=== PATIENT | male | born 1975 | race Two or more races ===

== ENCOUNTER 2024-11-24 09:51 | Inpatient (IN) | payer MEDICAID, SELFPAY ==
[2024-11-24] VITALS (12 sets, daily range): BP systolic 149–169; BP diastolic 100–116; PULSE 63–120; RESP 12–99; TEMP 36.4–37.2; O2SAT 91–99; BMI 28.1; BMI 28.8
--- NOTE | 2024-11-24 10:08 | EKG_ITS ---
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
--- NOTE | 2024-11-24 10:23 | XR_ITS ---
Examination: AP chest single view Technique one AP portable upright chest single view Date and time: November 24, 2024, 10:38 AM INDICATIONS: Acute chest pain today. FINDINGS: Atelectasis versus early pneumonia at the lung bases Normal heart size Moderate osteopenia IMPRESSION: Atelectasis versus early pneumonia at the lung bases, clinical correlation advised
--- NOTE | 2024-11-24 10:25 | PD.EDCHEST ---
ED Chest Pain RME/HPI General Chief Complaint: Chest Pain Stated Complaint: CHEST PAIN Time Seen by Provider: 11/24/24 10:22 Arrival date/time: 11/24/24 09:51 Limitations: no limitations RME / HPI RME / HPI narrative: 49 year old male with history of heart problems , hypertension, GERD presents to the ED BIBA for evaluation of substernal chest pain beginning last night and worsening this morning while in court. Described as tightness in sensation with radiation to epigastric region and mid upper back. Accompanied by sweating and nausea. Reports he had experienced similar chest pain 2 years ago and during that time diagnosed with pancreatitis. Denies drinking alcohol or drug use. No known modifying factors. Per medics reports, patient was given 0.4mg SL Nitro, 1 Nitro paste on left chest, and 162mg ASA. Related Data Allergies Allergy/AdvReac Type Severity Reaction Status Date / Time Penicillins Allergy Severe Vomiting Verified 11/24/24 10:22 NKA* Allergy Uncoded 11/26/11 07:59 Review of Systems Review of Systems Systems Reviewed: All systems reviewed, normal except as documented Past Medical History Past Medical History CARDIAC: Positive Cardiac Disorders, Hypercholesterolemia, Congestive Heart Failure and Hypertension RESPIRATORY: Negative Chronic Obstructive Pulmonary Disease (COPD) or Asthma GENITOURINARY: Positive Chronic Kidney Disease; Negative Renal Disease ENDOCRINE: Negative Diabetes Mellitus Type 1 or Diabetes Mellitus Type 2 HEMATOLOGIC: Negative Sickle Cell Disease Family History FAMILY HISTORY: Negative Family Cancer Social History SMOKING STATUS: Never smoker ED Exam General Limitations: Present no limitations General appearance: Present alert and other (appears to be in pain, clammy) Head Head exam: Present atraumatic and normocephalic Eye Eye exam: Present normal appearance, PERRL and EOMI ENT ENT exam: Present normal exam, normal oropharynx and mucous membranes moist Neck Neck exam: Present normal inspection, full ROM and trachea midline Chest Chest inspection: Present normal inspection and symmetric chest wall rise Respiratory Respiratory exam: Present normal lung sounds bilaterally Cardiovascular Cardiovascular exam: Present regular rate, normal rhythm and normal heart sounds Abdominal Exam Abdominal exam: Present soft, tenderness (2+ mid epigastric and abdominal pain ) and normal bowel sounds Extremities Exam Extremities exam: Present normal inspection and full ROM Back Exam Back exam: Present normal inspection and full ROM Neurological Exam Neurological exam: Present alert, oriented X3 and CN II-XII intact Psychiatric Psychiatric exam: Present normal affect and normal mood Skin Skin exam: Present warm, intact, normal color and diaphoresis Course Quality Measures none Orders Category Date Time Status CT Screening NOW Care 11/24/24 13:59 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 Care 11/24/24 10:23 Active Continuous Pulse Oximetry ONCE Care 11/24/24 10:23 Completed EKG (ED ONLY) *Do not use* NOW Care 11/24/24 10:08 Completed Insert IV STAT Care 11/24/24 10:[address] abdomen w con Stat Exams 11/24/24 13:57 Taken EKG (ED Only) Stat Exams 11/24/24 10:08 Draft XR chest 1V portable Stat Exams 11/24/24 10:23 Completed B-Type Natriuretic Peptide Stat Lab 11/24/24 10:46 Completed CBC Stat Lab 11/24/24 10:46 Completed Comprehensive Metabolic Panel Stat Lab 11/24/24 10:46 Completed D-Dimer Stat Lab 11/24/24 10:46 Completed Lactic Acid [Lactate (Lactic Acid)] Stat Lab 11/24/24 14:12 Results Lipase Stat Lab 11/24/24 10:46 Completed Lipid Panel Stat Lab 11/24/24 14:12 Completed Magnesium Stat Lab 11/24/24 10:46 Completed Prothrombin Time with INR Stat Lab 11/24/24 10:46 Completed Troponin I Stat Lab 11/24/24 10:46 Completed Aspirin Chew Med 11/24/24 10:40 Discontinued 162 mg PO X1 ONE Aspirin Chew Med 11/24/24 10:23 Discontinued 324 mg PO X1 ONE HYDROmorphone INJ [Dilaudid Inj] Med 11/24/24 13:23 Discontinued 0.5 mg IVP X1 ONE Metoprolol Tartrate Inj [Lopressor Inj] Med 11/24/24 10:23 Active 5 mg IVP Q5M PRN Morphine Inj Med 11/24/24 10:25 Discontinued 4 mg IVP X1 ONE Nitroglycerin Oint 2% [Nitro-paste Oint 2%] Med 11/24/24 10:23 Discontinued 1 inch TOP X1 ONE Ondansetron Inj [Zofran Inj] Med 11/24/24 10:25 Discontinued 4 mg IVP X1 ONE Ondansetron Inj [Zofran Inj] Med 11/24/24 13:23 Discontinued 4 mg IVP X1 ONE Sodium Chloride 0.9% 1000 ml [Ns] 1,000 ml Med 11/24/24 13:30 Discontinued IV 150 mls/hr Sodium Chloride 0.9% 500 ml [Ns] 500 ml Med 11/24/24 10:23 Discontinued IV 999 mls/hr Oxygen Delivery NOW RT 11/24/24 10:23 Active Vital Signs Vital signs: Vital Signs Temperature 97.5 F 11/24/24 10:08 Pulse Rate 69 11/24/24 10:08 Respiratory Rate 12 11/24/24 10:08 Blood Pressure 169/103 H 11/24/24 10:08 Pulse Oximetry (%) 98 11/24/24 10:08 Oxygen Delivery Method Room Air 11/24/24 10:08 Pulse ox is 98% on room air which is adequate. Chest Pain MDM Narrative MDM Narrative:: Gemma Fernandes am scribing for and in the presence of Dr. Roe. Patient data External records reviewed:: EMS form Clinical information provided by:: patient and EMS Social determinants that could affect healthcare access:: none Patient has the following chronic illnesses:: heart problems , hypertension, GERD, hx of pancreatitis How is presenting disease/condition affected by chronic disease/condition?: exacerbated by Evaluation data The following diagnostics were reviewed and interpreted by me:: EKG tracing(s) (11/24/2024 @ 10:14 AM. Sinus rhythm, rate 64, left axis deviation, no STEMI. ) Lab and/or radiology exams considered but not ordered:: None Interpretation Summary: Ordering Physician: Erich Roe MD Date of Service: 11/24/24 Procedure(s): XR chest 1V portable Accession Number(s): [id number] cc: Erich Roe MD; Mansoor Paredes MD; Keith Kay MD~ Examination: AP chest single view Technique one AP portable upright chest single view Date and time: November 24, 2024, 10:38 AM INDICATIONS: Acute chest pain today. FINDINGS: Atelectasis versus early pneumonia at the lung bases Normal heart size Moderate osteopenia IMPRESSION: Atelectasis versus early pneumonia at the lung bases, clinical correlation advised Dictated By: Keith Kay MD Signed By: <Electronically signed by Keith Kay MD in OV> 11/24/24 1122 Medications / Prescriptions Medications or Prescriptions considered but not ordered:: None Medication administrations:: Medication Administration History Acetaminophen (Acetaminophen 325 Mg Tablet) 650 mg PO Q6H PRN PRN Reason: Fever >100.3 Stop: 12/24/24 14:30 Heparin Sodium (Porcine) (Heparin Sod Inj 5000 Unit/Ml Vial) 5,000 unit SC Q8HR [facility] Stop: 12/08/24 21:59 Sodium Chloride (Ns) 1,000 mls @ 105 mls/hr IV .Q9H32M LEANNE Stop: 11/25/24 09:47 Last Admin: 11/24/24 15:38 Dose: 105 mls/hr Documented By: Metoprolol Tartrate (Metoprolol Tartrate Inj 1 Mg/Ml Amp 5 Ml) 5 mg IVP Q5M PRN PRN Reason: TACHYCARDIA Morphine Sulfate (Morphine Sulf Inj 10 Mg/Ml Vial) 4 mg IVP Q6H PRN PRN Reason: PAIN SCALE 7-10 (Severe Discontinued Medications Acetaminophen (Acetaminophen 325 Mg Tablet) 650 mg PO Q6H PRN PRN Reason: Fever >100.3 Stop: 12/24/24 14:30 Aspirin (Aspirin 81 Mg Chew) 324 mg PO X1 ONE Stop: 11/24/24 10:24 Last Admin: 11/24/24 10:40 Dose: Not Given Documented By: Non-Admin Reason: Cancelled by Provider Aspirin (Aspirin 81 Mg Chew) 162 mg PO X1 ONE Stop: 11/24/24 10:41 Last Admin: 11/24/24 10:43 Dose: 162 mg Documented By: Hydromorphone HCl (Hydromorphone Inj 2 Mg/Ml Vial) 0.5 mg IVP X1 ONE Stop: 11/24/24 13:24 Last Admin: 11/24/24 13:34 Dose: 0.5 mg Documented By: Sodium Chloride (Ns) 500 mls @ 999 mls/hr IV .Q31M ONE Stop: 11/24/24 10:53 Last Infusion: 11/24/24 11:27 Dose: Infused Documented By: Admin: 11/24/24 10:45 Dose: 999 mls/hr Documented By: Sodium Chloride (Ns) 1,000 mls @ 150 mls/hr IV .Q6H40M LEANNE Stop: 12/24/24 13:29 Last Infusion: 11/24/24 15:38 Dose: 0 mls/hr Documented By: Admin: 11/24/24 13:37 Dose: 150 mls/hr Documented By: GM Morphine Sulfate (Morphine Sulf Inj 10 Mg/Ml Vial) 4 mg IVP X1 ONE Stop: 11/24/24 10:26 Last Admin: 11/24/24 10:42 Dose: 4 mg Documented By: GM Morphine Sulfate (Morphine Sulf Inj 10 Mg/Ml Vial) 4 mg IVP X1 ONE Stop: 11/24/24 14:38 Last Admin: 11/24/24 15:37 Dose: 4 mg Documented By: GM Nitroglycerin (Nitroglycerin Oint 2% 1 Inch Packet) 1 inch TOP X1 ONE Stop: 11/24/24 10:24 Last Admin: 11/24/24 13:41 Dose: Not Given Documented By: GM Non-Admin Reason: Contraindicated Comments: PT DENIES CHEST PAIN AT THIS TIME. Ondansetron HCl (Ondansetron Inj 2 Mg/Ml Inj 2 Ml) 4 mg IVP X1 ONE; Protocol Stop: 11/24/24 10:26 Last Admin: 11/24/24 10:41 Dose: 4 mg Documented By: GM Ondansetron HCl (Ondansetron Inj 2 Mg/Ml Inj 2 Ml) 4 mg IVP X1 ONE; Protocol Stop: 11/24/24 13:24 Last Admin: 11/24/24 13:40 Dose: 4 mg Documented By: ASHOK See above Consultations Consultation(s) initiated? (list below): Yes Consultation #1 (Physician, Specialty, Details): I spoke with resident working with Dr. Rodriguez. Discussed patients PMHx, HPI, ED course, exam findings, labs, and radiology results. The hospitalist agree to accept the patient for admission. Time: 12:47 Diagnosis Chest Pain Differential Diagnosis: stable angina, atypical chest pain, st elevation myocardial infarction, costochondritis, chest pain, biliary colic and other (pancreatitis ) Most likely diagnosis given after review of the tests above:: Pancreatitis Admission Indicated Admission indicated?: not indicated Admission Request Was there a request for admission?: Yes Admission Attestation Admission request attestation: Discussed case with [] from Hospitalist service regarding admission. Discussed patients ED course, exam findings, labs, and radiology results. The Hospitalist [agrees,declines] to accept the patient for admission. Disposition Plan Disposition Plan: Admit Discharge Plan Plan Patient Disposition: Admit Acute Care w/in Hospital Problem List Clinical Impression: Pancreatitis
[2024-11-24] MEDS: ONDANSETRON INJ 2 MG/ML INJ 2 ML 4 MG IVP ×2 (10:41→13:40)
[2024-11-24] MEDS: MORPHINE SULF INJ 10 MG/ML VIAL 4 MG IVP ×2 (10:42→15:37)
[2024-11-24] MEDS: ASPIRIN 81 MG CHEW 162 MG PO (10:43)
[2024-11-24] MEDS: SODIUM CHLORIDE 0.9% 500 ML 500 ML 999 ML IV (10:45)
[2024-11-24 11:14] LABS: Basophils # (Auto) 0.1 Thou/mm3 (0.0-0.2); Basophils % (Auto) 1 % (0-2.5); Eosinophils # (Auto) 0.6 Thou/mm3 (0.0-0.5); Eosinophils % (Auto) 4 % (0-10); Hematocrit 43.7 % (41.0-53.0); Hemoglobin 15.4 g/dL (13.5-16.0); Immature Granulocytes % (Auto) 1 % (0-0); Immature Granulocytes Auto 0.08 Thou/mm3 (0.00-0.00); Lymphocytes # (Auto) 1.9 Thou/mm3 (1.0-4.8); Lymphocytes % (Auto) 14 % (10-50); Mean Corpuscular HGB Conc 35.2 g/dl (31.0-37.0); Mean Corpuscular Hemoglobin 32.9 pg (25.0-35.0); Mean Corpuscular Volume 93 fL (80-100); Monocytes # (Auto) 0.9 Thou/mm3 (0.0-0.8); Monocytes % (Auto) 7 % (0-12); Neutrophils # (Auto) 10.3 Thou/mm3 (1.8-7.7); Neutrophils % (Auto) 74 % (37-80); Nucleated Red Blood Cell % 0 /100 WBC (0); Platelet Count 239 Thou/mm3 (140-440); RDW Standard Deviation 45.6 fL (35.1-43.9); Red Blood Count 4.68 Miln/mm3 (4.50-5.90); White Blood Count 13.8 Thou/mm3 (3.8-10.6)
[2024-11-24 11:24] LABS: Prothrombin Time 10.6 Seconds (9.0-12.2)
[2024-11-24 11:40] LABS: B-Type Natriuretic Peptide < 20 pg/mL (0-100)
[2024-11-24 11:41] LABS: D-Dimer 461 ng/mL (<600)
[2024-11-24 11:52] LABS: Alanine Aminotransferase 30 U/L (10-49); Albumin, Serum 4.3 gm/dL (3.5-5.0); Albumin/Globulin Ratio 1.6 (1.2-2.2); Alkaline Phosphatase 80 U/L (46-116); Anion Gap 14 (7-16); BUN/Creatinine Ratio 13 Ratio (12-20); Bilirubin,Total 0.5 mg/dL (0.3-1.2); Blood Urea Nitrogen 13 mg/dL (9-23); Calcium 8.9 mg/dL (8.3-10.6); Calcium (Corrected) 8.9 mg/dL (8.5-10.1); Carbon Dioxide 22.6 mMol/L (20.0-31.0); Chloride 104 mMol/L (98-107); Estimated Creatinine Clearance 92.2 mL/min (>60); Globulin 2.7 gm/dL (2.3-3.5); Glucose 186 mg/dL (74-106); Lipase 2979 U/L (12-53); Magnesium 1.6 mg/dL (1.6-2.6); Osmolality,Calculated 286 (275-295); Potassium 3.7 mMol/L (3.4-5.1); Sodium 141 mMol/L (136-145); Troponin I < 0.002 ng/mL (0.0-0.045); eGFR > 60 See Note
[2024-11-24] MEDS: HYDROmorphone INJ 2 MG/ML VIAL 0.5 MG IVP ×2 (13:34→22:08)
[2024-11-24] MEDS: SODIUM CHLORIDE 0.9% 1000 ML 1,000 ML 150 ML IV (13:37)
--- NOTE | 2024-11-24 13:57 | XR_ITS ---
Examination: CT abdomen with intravenous contrast. Coronal 2-D reconstructions. Sagittal 2-D reconstructions. Date and time of exam:November 24, 2024 1544 hours INDICATIONS: Upper abdominal pain nausea vomiting today CTDI: vol (mGy): 8.36 DLP: (mGycm): 393 Technique: Axial images of the abdomen have been obtained, 3 mm slice thickness, 60 cc [id number] 2-D sagittal coronal reconstructions Low dose protocols were performed. One or more of the following dose reduction techniques were used; automated exposure control, adjustment of the mA and/or KV according to patient size, use of iterative reconstruction technique. Findings: Atelectasis in the right lower lobe Mild fluid subcapsular to the liver No definite gallstones Severe acute pancreatitis, marked edema surrounding the pancreas extending into the abdomen No pseudocyst Common bile duct not well visualized Spleen not enlarged Aorta normal size No hydronephrosis No bowel obstruction Normal appendix IMPRESSION: Severe acute pancreatitis, consider hepatobiliary sonography follow-up
[2024-11-24 14:17] LABS: Lactate (Lactic Acid) 2.8 mMol/L (0.4-2.0)
--- NOTE | 2024-11-24 14:37 | ECHO_ITS ---
Transthoracic Echo Report Ht (in): 68 Wt (lb): 185 Exam Location: Echo Lab Status: Emergency Front Edger: Monse Alejandro Indications: Procedure Performed: BP: 163 / 102 HR: 84 Technical Quality: Adequate MEASUREMENTS (Male / Female) Normal Values 2D ECHO LV Diastolic Diameter PLAX 3.9 cm 4.2 - 5.9 / 3.9 - 5.3 cm LV Systolic Diameter PLAX 2.6 cm IVS Diastolic Thickness 0.6 cm 0.6 - 1.0 / 0.6 - 0.9 cm LVPW Diastolic Thickness 0.8 cm 0.6 - 1.0 / 0.6 - 0.9 cm LV Relative Wall Thickness 0.4 LVOT Diameter 2.0 cm LA Volume Index 25.2 cm?/m? 16 - 28 cm?/m? Ascending Aorta Diameter 3.0 cm DOPPLER AV Peak Velocity 105.0 cm/s AV Peak Gradient 4.4 mmHg LVOT Peak Velocity 101.0 cm/s LVOT Peak Gradient 4.1 mmHg AV Area Cont Eq pk 3.0 cm? MV Area PHT 3.2 cm? Mitral E Point Velocity 61.6 cm/s Mitral A Point Velocity 83.4 cm/s Mitral E to A Ratio 0.7 LV E' Lateral Velocity 10.3 cm/s Mitral E to LV E' Lateral Ratio 6.0 LV E' Septal Velocity 6.3 cm/s Mitral E to LV E' Septal Ratio 9.8 PV Peak Velocity 118.0 cm/s PV Peak Gradient 5.6 mmHg FINDINGS Left Ventricle Normal left ventricular size, wall thickness, systolic function with no obvious regional wall motion abnormalities. Normal left ventricular diastolic filling pattern for age. The ejection fraction is visually estimated at 60 %. Right Ventricle The right ventricle is normal in size and systolic function. The estimated right ventricular systolic pressure, 5 mmHg. Left Atrium The left atrium is normal by two-dimensional, color flow and Doppler imaging with no structural abnormalities, no thrombus formation present. Right Atrium The right atrium is normal by two-dimensional imaging, color flow and Doppler imaging with no structural abnormalities, no thrombus formation present. Atrial Septum The interatrial septum appears normal with no evidence of a shunt. Aorta The aorta is normal by two-dimensional, color flow and Doppler interrogation. Mitral Valve The mitral valve is normal by two-dimensional, color flow and Doppler interrogation. There is trace mitral regurgitation. Aortic Valve The aortic valve is trileaflet and normal by two-dimensional, color flow and Doppler interrogation. There is no significant aortic valve regurgitation. Tricuspid Valve The tricuspid valve is normal by two-dimensional, color flow and Doppler interrogation. There is trace tricuspid regurgitation. Pulmonic Valve The pulmonic valve is not well visualized. There is no significant pulmonic valve regurgitation. Vessels The pulmonary artery appears normal. The inferior vena cava pulmonary and hepatic veins appear normal. Pericardium The pericardium is normal by two-dimensional imaging. There is no significant pericardial effusion. Moderate ascites noted. CONCLUSIONS Indications: History of Heart Failure Normal LV size and function. Estimated EF 60-65%. Diastolic function indeterminate. Normal RV size and function. Trace MR and TR. Could not measure RVSP Ascites noted. No pericardial effusion. Sebastian Brody (Electronically Signed) Final Date: 24 November 2024 19:16
[2024-11-24 14:38] LABS: Cardiac Risk Estimate 6.1 RATIO (4.0-6.7); Cholesterol 226 mg/dL (132-200); HDL Cholesterol 37 mg/dL (40-60); LDL Cholesterol,Calculated 137 mg/dL (0-130); Triglycerides 262 mg/dL (30-150)
--- NOTE | 2024-11-24 15:21 | ESHP_ITS ---
Documentation for date of: 11/24/24 [facility] History of Present Illness History of present illness: Mr. Paredes is a 49-year-old male past medical history significant for heart failure (no previous records available, patient follows with Dr. Hernandez in [place]), hypertension, GERD presented to the ED complaining of severe abdominal pain. Patient states he has been eating a lot of greasy food for several days and yesterday he had [employer] which exacerbated his symptoms initially he was having substernal chest pain and some back pain which now has progressed to diffuse abdominal pain. Patient states he was also having a lot of associated nausea and had 1 episode of vomiting this morning and 1 in the ED. Patient states since then his chest and back pain has resolved however abdominal pain is 9 out of 10. Patient denies any dizziness or syncopal, denies any chest pressure or palpitations. Patient denies any recent travel, sick contacts, denies any diarrhea, melena or hematochezia. Patient states that he used to drink a lot of alcohol every single day and had an episode of acute pancreatitis for which he was hospitalized in [facility] and since then has quit drinking alcohol completely. Patient states he has been abstinent from alcohol for at least 2 years. Patient does admit that he eats meat and very greasy food daily. ED course In the ED patient's initial vitals included blood pressure 169/113, pulse 69, saturating on room air. Labs include WBC 13.8, and CMP is unremarkable with the exception of glucose 186, lactic acid 2.8, lipase 2979 Lipid panel: Triglycerides 262, cholesterol 226, LDL 137, HDL 37 EKG showed normal sinus rhythm, heart rate 64, QTc 436 Chest x-ray shows atelectasis versus early pneumonia at the lung bases In the ED patient received morphine 4 mg x 2, Zofran 4 mg x 2, aspirin 162 mg p.o. x 1, NS 500cc bolus and NS 1 L at 150 MLS per hour, Dilaudid 0.5 mg x 1 PMH: Heart failure, primary hypertension, GERD PSH: Inguinal hernia, plates in the left femur SH: Patient has a history of heavy alcohol use for many years patient quit and has remained abstinence from alcohol for the past 2 years, denies tobacco and drug use Allergies: Penicillin Home Meds: Furosemide, lisinopril, carvedilol, omeprazole Review of Systems Review of Systems Systems Reviewed: All systems reviewed, normal except as documented Exam Vital Signs Temp Pulse Resp BP Pulse Ox O2 Del Method O2 Flow Rate 98.3 F 80 19 163/102 H 95 Room Air 1 11/24/24 13:43 11/24/24 15:01 11/24/24 15:01 11/24/24 13:43 11/24/24 13:43 11/24/24 13:43 11/24/24 10:27 Narrative Exam GENERAL: middle aged man, AOx4, appears to be in distress due to pain NEURO: no focal neurological deficits noted HEENT: Atraumatic, Normocephalic. mucous membranes moist. Eyes open, symmetrical, & clear HEART: Normal Heart Sounds LUNGS: Clear to auscultation with no wheezing or crackles. ABDOMEN: soft, non-distended, diffuse abdominal tenderness and guarding SKIN: No Rash or ecchymoses EXTREMITIES: No edema, tenderness, able to move all 4 extremities, pedal pulses palpated Results: Labs 11/24/24 10:46 11/24/24 10:46 Labs: Short CBC 11/24/24 Range/Units 10:46 WBC 13.8 H (3.8-10.6) Thou/mm3 Hgb 15.4 (13.5-16.0) g/dL Hct 43.7 (41.0-53.0) % Plt Count 239 (140-440) Thou/mm3 BMP 11/24/24 10:46 Sodium 141 Potassium 3.7 Chloride 104 Carbon Dioxide 22.6 BUN 13 Creatinine 1.0 Glucose 186 H Calcium 8.9 Cardiac Enzymes 11/24/24 Range/Units 10:46 Troponin I < 0.002 (0.0-0.045) ng/mL Liver Function 11/24/24 Range/Units 10:46 Total Bilirubin 0.5 (0.3-1.2) mg/dL ALT 30 (10-49) U/L Alkaline Phosphatase 80 (46-116) U/L Albumin 4.3 (3.5-5.0) gm/dL Quality Measures Quality Measures VTE prophylaxis Medications Home Medications and Allergies Home Medications ?Medication ?Instructions ?Recorded ?Confirmed ?Type carvedilol 3.125 mg tablet 3.125 mg PO BID 11/24/24 History furosemide 20 mg tablet 20 mg PO DAILY 11/24/2411/15 History lisinopril 20 mg tablet 20 mg PO DAILY 11/24/2411/15 History omeprazole 20 mg capsule,delayed 20 mg PO DAILY 11/24/24 History release Allergies Allergy/AdvReac Type Severity Reaction Status Date / Time Penicillins Allergy Severe Vomiting Verified 11/24/24 10:22 NKA* Allergy Uncoded 11/26/11 07:59 Visit Medications Acetaminophen (Acetaminophen 325 Mg Tablet) 650 mg PO Q6H PRN PRN Reason: Fever >100.3 Stop: 12/24/24 14:30 Heparin Sodium (Porcine) (Heparin Sod Inj 5000 Unit/Ml Vial) 5,000 unit SC Q8HR LEANNE Stop: 12/08/24 21:59 Sodium Chloride (Ns) 1,000 mls @ 105 mls/hr IV .Q9H32M [facility] Stop: 11/25/24 09:47 Metoprolol Tartrate (Metoprolol Tartrate Inj 1 Mg/Ml Amp 5 Ml) 5 mg IVP Q5M PRN PRN Reason: TACHYCARDIA Morphine Sulfate (Morphine Sulf Inj 10 Mg/Ml Vial) 4 mg IVP Q6H PRN PRN Reason: PAIN SCALE 7-10 (Severe Discontinued Medications Acetaminophen (Acetaminophen 325 Mg Tablet) 650 mg PO Q6H PRN PRN Reason: Fever >100.3 Stop: 12/24/24 14:30 Aspirin (Aspirin 81 Mg Chew) 324 mg PO X1 ONE Stop: 11/24/24 10:24 Last Admin: 11/24/24 10:40 Dose: Not Given Aspirin (Aspirin 81 Mg Chew) 162 mg PO X1 ONE Stop: 11/24/24 10:41 Last Admin: 11/24/24 10:43 Dose: 162 mg Hydromorphone HCl (Hydromorphone Inj 2 Mg/Ml Vial) 0.5 mg IVP X1 ONE Stop: 11/24/24 13:24 Last Admin: 11/24/24 13:34 Dose: 0.5 mg Sodium Chloride (Ns) 500 mls @ 999 mls/hr IV .Q31M ONE Stop: 11/24/24 10:53 Last Infusion: 11/24/24 11:27 Dose: Infused Sodium Chloride (Ns) 1,000 mls @ 150 mls/hr IV .Q6H40M LEANNE Stop: 12/24/24 13:29 Last Admin: 11/24/24 13:37 Dose: 150 mls/hr Morphine Sulfate (Morphine Sulf Inj 10 Mg/Ml Vial) 4 mg IVP X1 ONE Stop: 11/24/24 10:26 Last Admin: 11/24/24 10:42 Dose: 4 mg Morphine Sulfate (Morphine Sulf Inj 10 Mg/Ml Vial) 4 mg IVP X1 ONE Stop: 11/24/24 14:38 Nitroglycerin (Nitroglycerin Oint 2% 1 Inch Packet) 1 inch TOP X1 ONE Stop: 11/24/24 10:24 Last Admin: 11/24/24 13:41 Dose: Not Given Ondansetron HCl (Ondansetron Inj 2 Mg/Ml Inj 2 Ml) 4 mg IVP X1 ONE; Protocol Stop: 11/24/24 10:26 Last Admin: 11/24/24 10:41 Dose: 4 mg Ondansetron HCl (Ondansetron Inj 2 Mg/Ml Inj 2 Ml) 4 mg IVP X1 ONE; Protocol Stop: 11/24/24 13:24 Last Admin: 11/24/24 13:40 Dose: 4 mg Assessment & Plan Plan Mr. Paredes is a 49-year-old male past medical history significant for heart failure (no previous records available, patient follows with Dr. Hernandez in [place]), hypertension, GERD presented to the ED complaining of severe abdominal pain. Pt is admitted for management of acute pancreatitis. #Acute pancreatitis, idiopathic #Lactic Acidosis - Unknown etiology at this point, CT of the abdomen is pending therefore unable to determine whether it is gallstone pancreatitis, triglycerides levels are mildly elevated however patient does endorse to eating very greasy food regularly, and likely alcohol related as patient has remained abstinence from alcohol for at least 2 years. - Patient has diffuse abdominal pain initially was radiating to mid back which has since resolved however the diffuse abdominal pain has persist, patient has associated nausea and vomiting. - Lipase on admission was 2979 -Lipid panel: Triglycerides 262, cholesterol 226, LDL 137, HDL 37 -Lactic acid 2.8 Plan: - NPO now - In the ED patient is given 1.5 L of NS, will continue fluids with NS 105 cc/hr as patient does have history of heart failure, will be careful with fluid resuscitation at a higher rate - IV pain control as needed ordered - Will continue to monitor patient's symptoms and will advance diet when able - CT with contrast pending #Hyperglycemia -Patient states he was told by his primary care that he has prediabetes however he is unsure of his A1c. He was advised lifestyle and dietary modifications Blood glucoses 186 -A1c ordered for morning labs #Heart failure -Pt states he has history of HR [facility] -Pt's cannot remember when his last echo was, we have no previous admission records -Pt takes furosamide an carvidalol, will resume when med rec is complete -Echo ordered #Primary Hypertension -Pt is currently NPO due to nausea and vomiting, will resume home lisinopril PO when able -Hydralazine as needed ordered for systolic blood pressure > 160 #GERD -Patient takes omeprazole at home -Started the patient on pantoprazole IVP daily Health Maintenance Disposition: [facility] for management of acute pancreatitis DVT Prophylaxis: Heparin 5000 units SC Q8 hrs GI Prophylaxis: Pantoprozol-40 IV Qday Diet: NPO Lines: Peripheral lines Code status: Full Assessment and plan discussed with my attending physician Dr. Michael Penaloza (PGY-1)- Internal medicine resident Attending Provider Attestation/Addendum I attest that I was physically present for the evaluation, physical examination, lab and imaging review of the patient with the residents. I discussed the case with the residents and agree with the findings and plans of care as documented above. Patient is a 49 years old male with past medical history of possible heart failure, hypertension, GERD who presented to the ED with complaint of severe abdominal pain. Pain started after eating food from [employer]. She also had back pain, Nausea and vomiting. Denied any fever or chills. Denied any alcohol consumption for 2 years. Had a previous hospitalization for pancreatitis secondary to alcohol abuse. In the ED, he was hypertensive, had elevated WBC, lactate of 2.3, lipase 2979, glucose 186, triglycerides 262. Calcium level within normal limits. Chest x-ray shows atelectasis versus early pneumonia of left base. Patient denied any respiratory symptoms. After examination of the patient and review of the clinical data I feel that this patient needs admission to the hospital for further treatment/evaluation of acute pancreatitis, unclear cause. We will start him on IV hydration with close monitoring.. Added antiemetics. We will keep him n.p.o., once nausea improves we will start him on diet. Analgesic regimen in place. We will obtain CT abdomen/pelvis with contrast to evaluate for any complication and gallstone disease. Hemoglobin A1c ordered to evaluate for hyperglycemia. Echocardiography ordered to evaluate for heart failure. Andrew Rodriguez MD
[2024-11-24] MEDS: SODIUM CHLORIDE 0.9% 1000 ML 1,000 ML 105 ML IV ×2 (15:38→22:34)
[2024-11-24 17:15] LABS: Reflex Lactate? Y
[2024-11-24] MEDS: HYDROmorphone INJ 2 MG/ML VIAL IVP (17:18)
[2024-11-24 17:56] LABS: Lactic Acid, 3 HR 3.8 mMol/L (0.4-2.0)
[2024-11-24] MEDS: hydrALAZINE INJ 20 MG/ML VIAL 10 MG IVP (18:09)
[2024-11-24] MEDS: MORPHINE SULF INJ 10 MG/ML VIAL 2 MG IVP (19:38)
[2024-11-24] MEDS: HEPARIN SOD INJ 5000 UNIT/ML VIAL SC (21:47)
--- NOTE | 2024-11-24 23:39 | PC.NURSE ---
88% to 92% O2 sat on room air, R=33- Applied O2 inh on at 2L/min/nc.
[2024-11-25] VITALS (14 sets, daily range): BP systolic 130–174; BP diastolic 98–118; PULSE 88–120; RESP 19–98; TEMP 36.5–37.2; O2SAT 91–99
[2024-11-25] MEDS: MORPHINE SULF INJ 10 MG/ML VIAL 2 MG IVP ×5 (00:20→19:42)
--- NOTE | 2024-11-25 00:29 | PC.NURSE ---
seen and examined by Dr. Nowak- kashif/ orders made and carried out.
[2024-11-25] MEDS: Magnesium Sulfate 4 GM Ivpb 4 GM/50 ML BAG IV (00:37)
[2024-11-25 00:45] LABS: Lactate (Lactic Acid) 5.9 mMol/L (0.4-2.0)
--- NOTE | 2024-11-25 00:51 | PD.RESEVENT ---
Documentation for date of: 11/25/24 Event Note Event Note: Rapid response was called given that patient was tachycardic, tachypneic, and had elevated blood pressure. Prior to rapid response call patient was seen by myself and a lactic was ordered as well as magnesium was given that his magnesium from earlier in the day was 1.6 and he did not receive any magnesium. At this time patient was complaining of possible chest pain, but was mostly epigastric pain. Previous lactic acid came back elevated at 5.9 from 3.8. There is low suspicion for sepsis given that most of the patient's symptoms could be explained due to his ongoing pain from his pancreatitis and patient not being on his home medication of Coreg. Given the sepsis alert was called and patient does have a chest x-ray with some possible atelectasis versus pneumonia, but without any symptoms or fevers, blood cultures were drawn and patient was placed on antibiotics as well. Patient was also giving labetalol 10 mg, ekg, and we will continue to trend lactic acid. Given his history of heart failure we decided not to increase his fluids at this time. After Labs came back it was found patient had potassium 5.3 and EKG when compared to previous one did show changes therefore gave hyperkalemia cocktail and ordered troponins. Case discussed and disclosed with Attending Dr. Lg Steinberg PGY1 Disclaimer: Even though this this note was dictated by speech recognition and even though it was carefully revised there may still be minor errors in lubrication technician due to voice recognition software.
[2024-11-25] MEDS: LABETALOL INJ 5 MG/ML VIAL 20 ML 10 MG IVP (00:53)
[2024-11-25 02:03] LABS: Basophils # (Auto) 0.1 Thou/mm3 (0.0-0.2); Basophils % (Auto) 1 % (0-2.5); Eosinophils % (Auto) 0 % (0-10); Hematocrit 54.7 % (41.0-53.0); Hemoglobin 19.7 g/dL (13.5-16.0); Immature Granulocytes % (Auto) 1 % (0-0); Immature Granulocytes Auto 0.08 Thou/mm3 (0.00-0.00); Lymphocytes # (Auto) 0.7 Thou/mm3 (1.0-4.8); Lymphocytes % (Auto) 5 % (10-50); Mean Corpuscular Hemoglobin 32.3 pg (25.0-35.0); Mean Corpuscular Volume 90 fL (80-100); Monocytes % (Auto) 7 % (0-12); Neutrophils # (Auto) 13.5 Thou/mm3 (1.8-7.7); Neutrophils % (Auto) 88 % (37-80); Nucleated Red Blood Cell % 0 /100 WBC (0); Platelet Count 189 Thou/mm3 (140-440); RDW Standard Deviation 45.1 fL (35.1-43.9); White Blood Count 15.5 Thou/mm3 (3.8-10.6)
[2024-11-25] MEDS: AZITHROMYCIN 250 MG TABLET 500 MG PO (02:03)
[2024-11-25] MEDS: cefTRIAXone 1 GM in SODIUM CHLORIDE 0.9% (Popper) 50 ML IV (02:04)
[2024-11-25] MEDS: HYDROmorphone INJ 2 MG/ML VIAL 0.5 MG IVP ×2 (02:19→11:48)
[2024-11-25 02:20] LABS: Alanine Aminotransferase 25 U/L (10-49); Albumin, Serum 3.9 gm/dL (3.5-5.0); Albumin/Globulin Ratio 1.4 (1.2-2.2); Alkaline Phosphatase 67 U/L (46-116); Anion Gap 16 (7-16); BUN/Creatinine Ratio 15 Ratio (12-20); Bilirubin,Total 0.8 mg/dL (0.3-1.2); Blood Urea Nitrogen 17 mg/dL (9-23); Calcium 8.3 mg/dL (8.3-10.6); Calcium (Corrected) 8.4 mg/dL (8.5-10.1); Carbon Dioxide 16.6 mMol/L (20.0-31.0); Chloride 106 mMol/L (98-107); Creatinine (Component) 1.1 mg/dL (0.6-1.3); Estimated Creatinine Clearance 84.9 mL/min (>60); Globulin 2.8 gm/dL (2.3-3.5); Glucose 186 mg/dL (74-106); Osmolality,Calculated 284 (275-295); Potassium 5.3 mMol/L (3.4-5.1); Sodium 139 mMol/L (136-145); Total Protein 6.7 gm/dL (5.7-8.2); eGFR > 60 See Note
[2024-11-25 03:08] LABS: Troponin I < 0.002 ng/mL (0.0-0.045)
[2024-11-25 03:34] LABS: Reflex Lactate? Y
[2024-11-25] MEDS: DEXTROSE 50%-WATER INJ 50 ML SYRINGE 25 ML IVP (03:37)
[2024-11-25] MEDS: INSULIN HUM REGULAR 1 UNIT/0.01 ML (PER UNIT) 5 UNIT IV (03:38)
[2024-11-25] MEDS: CALCIUM GLUC/NS 1000MG IVPB 1,000 MG/50 ML BAG 50 MG IV (03:39)
[2024-11-25 05:02] LABS: Lactic Acid, 3 HR 3.3 mMol/L (0.4-2.0)
[2024-11-25 05:04] LABS: Basophils # (Auto) 0.1 Thou/mm3 (0.0-0.2); Basophils % (Auto) 0 % (0-2.5); Eosinophils % (Auto) 0 % (0-10); Hematocrit 53.5 % (41.0-53.0); Hemoglobin 19.6 g/dL (13.5-16.0); Immature Granulocytes % (Auto) 0 % (0-0); Immature Granulocytes Auto 0.07 Thou/mm3 (0.00-0.00); Lymphocytes % (Auto) 6 % (10-50); Mean Corpuscular HGB Conc 36.6 g/dl (31.0-37.0); Mean Corpuscular Hemoglobin 32.8 pg (25.0-35.0); Mean Corpuscular Volume 90 fL (80-100); Monocytes # (Auto) 1.3 Thou/mm3 (0.0-0.8); Monocytes % (Auto) 8 % (0-12); Neutrophils # (Auto) 14.2 Thou/mm3 (1.8-7.7); Neutrophils % (Auto) 85 % (37-80); Nucleated Red Blood Cell % 0 /100 WBC (0); Platelet Count 170 Thou/mm3 (140-440); RDW Standard Deviation 45.2 fL (35.1-43.9); Red Blood Count 5.98 Miln/mm3 (4.50-5.90); White Blood Count 16.7 Thou/mm3 (3.8-10.6)
[2024-11-25 05:18] LABS: Glucose Estimated Average 114 mg/dL (80-131); Hemoglobin A1C 5.6 % Hgb (4.8-6.0)
[2024-11-25 05:21] LABS: Alanine Aminotransferase 22 U/L (10-49); Albumin, Serum 3.7 gm/dL (3.5-5.0); Albumin/Globulin Ratio 1.4 (1.2-2.2); Alkaline Phosphatase 65 U/L (46-116); Anion Gap 11 (7-16); BUN/Creatinine Ratio 19 Ratio (12-20); Bilirubin,Total 0.8 mg/dL (0.3-1.2); Blood Urea Nitrogen 19 mg/dL (9-23); Calcium 8.6 mg/dL (8.3-10.6); Calcium (Corrected) 8.8 mg/dL (8.5-10.1); Carbon Dioxide 18.1 mMol/L (20.0-31.0); Chloride 109 mMol/L (98-107); Estimated Creatinine Clearance 93.3 mL/min (>60); Globulin 2.7 gm/dL (2.3-3.5); Glucose 163 mg/dL (74-106); Magnesium 2.2 mg/dL (1.6-2.6); Osmolality,Calculated 281 (275-295); Phosphorous 3.1 mg/dL (2.4-5.1); Potassium 4.6 mMol/L (3.4-5.1); Sodium 138 mMol/L (136-145); Total Protein 6.4 gm/dL (5.7-8.2); eGFR > 60 See Note
[2024-11-25] MEDS: HEPARIN SOD INJ 5000 UNIT/ML VIAL SC ×3 (05:22→21:03)
[2024-11-25 08:31] LABS: Lactate (Lactic Acid) 4.3 mMol/L (0.4-2.0)
[2024-11-25] MEDS: PANTOPRAZOLE INJ 40 MG VIAL IVP (08:48)
[2024-11-25] MEDS: SODIUM CHLORIDE 0.9% 1000 ML 1,000 ML 200 ML IV ×4 (08:49→23:46)
[2024-11-25 11:21] LABS: Lactate (Lactic Acid) 2.4 mMol/L (0.4-2.0)
[2024-11-25 11:23] LABS: Reflex Lactate? Y
[2024-11-25 11:40] LABS: Lactic Acid, 3 HR 2.8 mMol/L (0.4-2.0)
[2024-11-25 13:02] LABS: Basophils % (Auto) 0 % (0-2.5); Eosinophils % (Auto) 0 % (0-10); Hematocrit 50.7 % (41.0-53.0); Hemoglobin 18.1 g/dL (13.5-16.0); Immature Granulocytes % (Auto) 0 % (0-0); Immature Granulocytes Auto 0.05 Thou/mm3 (0.00-0.00); Lymphocytes # (Auto) 0.8 Thou/mm3 (1.0-4.8); Lymphocytes % (Auto) 5 % (10-50); Mean Corpuscular HGB Conc 35.7 g/dl (31.0-37.0); Mean Corpuscular Hemoglobin 32.5 pg (25.0-35.0); Mean Corpuscular Volume 91 fL (80-100); Monocytes # (Auto) 1.1 Thou/mm3 (0.0-0.8); Monocytes % (Auto) 7 % (0-12); Neutrophils % (Auto) 87 % (37-80); Nucleated Red Blood Cell % 0 /100 WBC (0); Platelet Count 141 Thou/mm3 (140-440); RDW Standard Deviation 46.7 fL (35.1-43.9); Red Blood Count 5.57 Miln/mm3 (4.50-5.90)
[2024-11-25 14:19] LABS: Reflex Lactate? Y
--- NOTE | 2024-11-25 14:41 | PC.SS ---
Follow up note: On IV fluids. has sever pancreatitis. Pt will return home upon dc.
--- NOTE | 2024-11-25 15:00 | PC.SS ---
SS met with patient and regarding his d/c plan. Pt is alert/oriented. Pt was admitted for Chest Pain. Pt was sleeping. confirmed patient's demographic and contact information is correct on facesheet. Pt resides with , son, and dtr. Pt ambulates independently without assistance or DME. Pt is ok with all ADLs. Pt is employed full time babysitter seasonal. Patient?s pharmacy of choice is [facility] [address] in [place]. is patient's medical decision maker if he is unable. Per pt will return home upon d/c and she will provide transportation. Pt does not have an advance directive, SS offered, and declined. states pt followed up with PCP, [facility] last year in Jul. is requesting for pt to follow up with the physician residents at the [facility]. SS provided with [facility] which contains the [facility] information, upon her request. SS provided verbal list of physician residents who are currently following pt. Pt does not utilize O2 at home. SS offered to make an appointment but explained the convince of doing a walk-in instead due to her work schedule. D/C plan: Return home Next of Kin: , Nandini Paredes, phone# [phone] PCP: Will follow up with the physician residents at [facility]. Address: Correct on facesheet
[2024-11-25 15:28] LABS: Lactate (Lactic Acid) 3.4 mMol/L (0.4-2.0)
--- NOTE | 2024-11-25 15:42 | ESPR_ITS ---
<Statement entered by Luiz Zambrano MD - 12/04/24 15:02> I reviewed above note and agree with findings and plans. I have also personally examined the patient with medicine team and went over assessment and plan with medical team including pharmacist intern and resident physician. Documentation for date of: 11/25/24 Subjective Subjective Interval history: Overnight patient had a rapid response due to tachycardia and tachypnea. Lactic acid was elevated therefore patient was started on IV antibiotics. Patient has remained afebrile and the tachycardia and tachypnea is secondary to pain in the setting of severe acute pancreatitis therefore we will discontinue the antibiotics. Patient seen and examined at bedside this morning, patient endorses that his significant improvement in his symptoms he is saturating on room air, patient denies abdominal pain he states that he has been drinking sips of water and ice chips. Echocardiogram showed normal ejection fraction therefore we will increase the fluid rate. Labs showed hemoglobin to be 19.6 and repeat hemoglobin is 18.1, lactic acid is trend 4.3 -> 2.4-> 3.4. Will continue fluid resuscitation pain control and will trend lactic acid. Exam Vital Signs Temp Pulse Resp BP Pulse Ox O2 Del Method O2 Flow Rate 97.8 F 99 34 H 150/114 H 95 Room Air 2 11/25/24 11:58 11/25/24 12:00 11/25/24 11:58 11/25/24 11:58 11/25/24 11:58 11/25/24 11:58 11/25/24 00:30 Narrative Exam GENERAL: middle aged man, AOx4, appears to be in distress due to pain NEURO: no focal neurological deficits noted HEENT: Atraumatic, Normocephalic. mucous membranes moist. Eyes open, symmetrical, & clear HEART: Normal Heart Sounds LUNGS: Clear to auscultation with no wheezing or crackles. ABDOMEN: soft, non-distended, diffuse abdominal tenderness and guarding SKIN: No Rash or ecchymoses EXTREMITIES: No edema, tenderness, able to move all 4 extremities, pedal pulses palpated Objective Labs 11/25/24 12:54 11/25/24 04:47 Labs: Laboratory Results - last 24 hr 11/24/24 11/25/24 11/25/24 17:40 00:30 01:39 WBC 15.5 H RBC 6.10 H Hgb 19.7 H* D Hct 54.7 H D MCV 90 MCH 32.3 MCHC 36.0 RDW Std Deviation 45.1 H Plt Count 189 D Neut % (Auto) 88 H Lymph % (Auto) 5 L [place] % (Auto) 7 Eos % (Auto) 0 Baso % (Auto) 1 Neut # (Auto) 13.5 H Lymph # (Auto) 0.7 L [place] # (Auto) 1.0 H Eos # (Auto) 0.0 Baso # (Auto) 0.1 Immature Gran # (Auto) 0.08 H Absolute Nucleated RBC 0.00 Immature Gran % 1 H Nucleated RBC % 0 Sodium 139 Potassium 5.3 H D Chloride 106 Carbon Dioxide 16.6 L Anion Gap 16 BUN 17 Creatinine 1.1 Estim Creat Clear Calc 84.9 eGFR > 60 BUN/Creatinine Ratio [address] Glu mg/dL Hemoglobin A1c Calculated Osmolality 284 Lactic Acid 3.8 H 5.9 H* Calcium 8.3 Corrected Calcium 8.4 L Phosphorus Magnesium Total Bilirubin 0.8 ALT 25 Alkaline Phosphatase 67 Troponin I < 0.002 Total Protein 6.7 Albumin 3.9 Globulin 2.8 Albumin/Globulin Ratio 1.4 11/25/24 11/25/24 11/25/24 04:47 08:00 11:15 WBC 16.7 H RBC 5.98 H Hgb 19.6 H* Hct 53.5 H MCV 90 MCH 32.8 MCHC 36.6 RDW Std Deviation 45.2 H Plt Count 170 Neut % (Auto) 85 H Lymph % (Auto) 6 L [place] % (Auto) 8 Eos % (Auto) 0 Baso % (Auto) 0 Neut # (Auto) 14.2 H Lymph # (Auto) 1.0 [place] # (Auto) 1.3 H Eos # (Auto) 0.0 Baso # (Auto) 0.1 Immature Gran # (Auto) 0.07 H Absolute Nucleated RBC 0.00 Immature Gran % 0 Nucleated RBC % 0 Sodium 138 Potassium 4.6 D Chloride 109 H Carbon Dioxide 18.1 L Anion Gap 11 BUN 19 Creatinine 1.0 Estim Creat Clear Calc 93.3 eGFR > 60 BUN/Creatinine Ratio [address]ucose [address] Glu mg/dL 114 Hemoglobin A1c 5.6 Calculated Osmolality 281 Lactic Acid 3.3 H 4.3 H* 2.4 H Calcium 8.6 Corrected Calcium 8.8 Phosphorus 3.1 Magnesium 2.2 Total Bilirubin 0.8 ALT 22 Alkaline Phosphatase 65 Troponin I Total Protein 6.4 Albumin 3.7 Globulin 2.7 Albumin/Globulin Ratio 1.4 11/25/24 11/25/24 11/25/24 11:32 12:54 15:05 WBC 15.0 H RBC 5.57 Hgb 18.1 H* Hct 50.7 MCV 91 MCH 32.5 MCHC 35.7 RDW Std Deviation 46.7 H Plt Count 141 Neut % (Auto) 87 H Lymph % (Auto) 5 L [place] % (Auto) 7 Eos % (Auto) 0 Baso % (Auto) 0 Neut # (Auto) 13.0 H Lymph # (Auto) 0.8 L [place] # (Auto) 1.1 H Eos # (Auto) 0.0 Baso # (Auto) 0.0 Immature Gran # (Auto) 0.05 H Absolute Nucleated RBC 0.00 Immature Gran % 0 Nucleated RBC % 0 Sodium Potassium Chloride Carbon Dioxide Anion Gap BUN Creatinine Estim Creat Clear Calc eGFR BUN/Creatinine Ratio Glucose Estimated Ave Glu mg/dL Hemoglobin A1c Calculated Osmolality Lactic Acid 2.8 H 3.4 H Calcium Corrected Calcium Phosphorus Magnesium Total Bilirubin ALT Alkaline Phosphatase Troponin I Total Protein Albumin Globulin Albumin/Globulin Ratio Quality Measures Quality Measures VTE prophylaxis Assessment & Plan Assessment Current Active Medications: Generic Name Dose Route Start Last Admin Trade Name Freq PRN Reason Stop Dose Admin Acetaminophen 650 mg 11/24/24 14:41 Acetaminophen 325 Mg Tablet PO 12/24/24 14:30 Q6H PRN Fever >100.3 Azithromycin 500 mg 11/25/24 01:05 11/25/24 02:03 Azithromycin 250 Mg Tablet PO 12/02/24 01:04 500 mg QDAY LEANNE Administration Dextrose 25 ml 11/25/24 02:51 Dextrose 50%-Water Inj 50 Ml Syringe IV 12/25/24 02:50 Q15MIN PRN BG 50-70 responsive npo pt Dextrose 50 ml 11/25/24 02:51 Dextrose 50%-Water Inj 50 Ml Syringe IV 12/25/24 02:50 Q15MIN PRN BG <50 OR BG <70 & pt unresponsive Glucagon 1 mg 11/25/24 02:51 Glucagon Inj 1 Mg Vial IM Q15MIN PRN BG <70, and no IV access Heparin Sodium (Porcine) 5,000 unit 11/24/24 22:00 11/25/24 13:18 Heparin Sod Inj 5000 Unit/Ml Vial SC 12/08/24 21:59 5,000 unit Q8HR LEANNE Administration Hydralazine HCl 10 mg 11/24/24 16:30 11/24/24 18:09 Hydralazine Inj 20 Mg/Ml Vial IVP 12/24/24 16:29 10 mg PRN PRN Administration SBP > 160 Sodium Chloride 1,000 mls @ 200 mls/hr 11/25/24 08:34 11/25/24 13:47 Ns IV 12/25/24 08:33 200 mls/hr .Q5H LEANNE Administration Ceftriaxone Sodium/Dextrose 1 gm in 50 mls @ 100 mls/hr 11/25/24 21:00 Rocephin/D5w 1gm Iv Premix IV 12/02/24 20:59 HS LEANNE Morphine Sulfate 2 mg 11/24/24 17:08 11/25/24 15:06 Morphine Sulf Inj 10 Mg/Ml Vial IVP 11/29/24 17:06 2 mg Q4HR PRN Administration Pain Scale 4-10 (Severe Pantoprazole Sodium 40 mg 11/25/24 09:00 11/25/24 08:48 Pantoprazole Inj 40 Mg Vial IVP 12/25/24 08:59 40 mg QDAY LEANNE Administration Plan Mr. Paredes is a 49-year-old male past medical history significant for heart failure (no previous records available, patient follows with Dr. Hernandez in [place]), hypertension, GERD presented to the ED complaining of severe abdominal pain. Pt is admitted for management of acute pancreatitis. #Acute pancreatitis, unknown etiology #Lactic Acidosis #NAGMA -Unknown etiology at this point, CT of the abdomen is pending therefore unable to determine whether it is gallstone pancreatitis, triglycerides levels are mildly elevated however patient does endorse to eating very greasy food regularly, and likely alcohol related as patient has remained abstinence from alcohol for at least 2 years. - Patient has diffuse abdominal pain initially was radiating to mid back which has since resolved however the diffuse abdominal pain has persist, patient has associated nausea and vomiting. - CT with contrast - Severe acute pancreatitis - Lipase on admission was 2979 -Lipid panel: Triglycerides 262, cholesterol 226, LDL 137, HDL 37 -Lactic acid 2.8 Plan: - NPO now - In the ED patient is given 1.5 L of NS - Continue IV fluids with NS 200 cc/hr - IV pain control as needed ordered - Will continue to monitor patient's symptoms and will advance diet when able #Polycythemia -Hgb 19.6 -> 18.1 -hemoconcentration likely secondary to acute pancreatitis -Will continue to monitor daily CBC #Hyperglycemia Blood glucoses 186 -A1c 5.6 #Primary Hypertension -Pt is currently NPO due to nausea and vomiting, will resume home lisinopril PO when able -Hydralazine as needed ordered for systolic blood pressure > 160 #GERD -Patient takes omeprazole at home -Started the patient on pantoprazole IVP daily -Pt states he has history of Heart failure and see Dr. Hernandez in [place]. Echo during this hospitalization showed EF >60%. 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 However since pt has remained abstinent from alcohol for more than 2 years his cardiac function has improved. Will reevaluated Pt's home medications upon discharge. Health Maintenance Disposition: [facility] for management of acute pancreatitis DVT Prophylaxis: Heparin 5000 units SC Q8 hrs GI Prophylaxis: Pantoprozol-40 IV Qday Diet: NPO Lines: Peripheral lines Code status: Full Assessment and plan discussed with my attending physician Dr. Juan Manuel Penaloza (PGY-1)- Internal medicine resident
[2024-11-25] MEDS: ACETAMINOPHEN 325 MG TABLET 650 MG PO ×2 (17:14→23:47)
[2024-11-25 17:50] LABS: Lactate (Lactic Acid) 2.7 mMol/L (0.4-2.0)
[2024-11-25 18:26] LABS: Reflex Lactate? Y
[2024-11-25 20:43] LABS: Lactate (Lactic Acid) 2.5 mMol/L (0.4-2.0)
[2024-11-25 20:45] LABS: Reflex Lactate? Y
[2024-11-25 23:42] LABS: Reflex Lactate? Y
[2024-11-25] MEDS: hydrALAZINE INJ 20 MG/ML VIAL 10 MG IVP (23:51)
[2024-11-26] VITALS (10 sets, daily range): BP systolic 135–171; BP diastolic 03–108; PULSE 89–115; RESP 16–98; TEMP 36.7–37.1; O2SAT 95–97; BMI 29.1; BMI 29.0
[2024-11-26 00:18] LABS: Lactic Acid, 3 HR 2.1 mMol/L (0.4-2.0)
[2024-11-26] MEDS: MORPHINE SULF INJ 10 MG/ML VIAL 2 MG IVP ×5 (01:27→23:23)
[2024-11-26] MEDS: SODIUM CHLORIDE 0.9% 1000 ML 1,000 ML 200 ML IV ×4 (05:21→20:08)
[2024-11-26] MEDS: HEPARIN SOD INJ 5000 UNIT/ML VIAL SC ×3 (05:22→21:40)
[2024-11-26 06:10] LABS: Lactate (Lactic Acid) 1.5 mMol/L (0.4-2.0)
[2024-11-26 06:14] LABS: Basophils % (Auto) 0 % (0-2.5); Eosinophils # (Auto) 0.2 Thou/mm3 (0.0-0.5); Eosinophils % (Auto) 1 % (0-10); Hematocrit 41.2 % (41.0-53.0); Hemoglobin 14.8 g/dL (13.5-16.0); Immature Granulocytes % (Auto) 1 % (0-0); Immature Granulocytes Auto 0.11 Thou/mm3 (0.00-0.00); Lymphocytes # (Auto) 0.7 Thou/mm3 (1.0-4.8); Lymphocytes % (Auto) 6 % (10-50); Mean Corpuscular HGB Conc 35.9 g/dl (31.0-37.0); Mean Corpuscular Hemoglobin 32.5 pg (25.0-35.0); Mean Corpuscular Volume 90 fL (80-100); Monocytes # (Auto) 0.7 Thou/mm3 (0.0-0.8); Monocytes % (Auto) 6 % (0-12); Neutrophils # (Auto) 10.6 Thou/mm3 (1.8-7.7); Neutrophils % (Auto) 86 % (37-80); Nucleated Red Blood Cell % 0 /100 WBC (0); Platelet Count 106 Thou/mm3 (140-440); RDW Standard Deviation 46.8 fL (35.1-43.9); Red Blood Count 4.56 Miln/mm3 (4.50-5.90); White Blood Count 12.4 Thou/mm3 (3.8-10.6)
[2024-11-26 07:13] LABS: Alanine Aminotransferase 17 U/L (10-49); Albumin, Serum 3.1 gm/dL (3.5-5.0); Albumin/Globulin Ratio 1.6 (1.2-2.2); Alkaline Phosphatase 56 U/L (46-116); Anion Gap 10 (7-16); BUN/Creatinine Ratio 23 Ratio (12-20); Bilirubin,Total 1.2 mg/dL (0.3-1.2); Blood Urea Nitrogen 16 mg/dL (9-23); Calcium 7.5 mg/dL (8.3-10.6); Calcium (Corrected) 8.2 mg/dL (8.5-10.1); Carbon Dioxide 25.4 mMol/L (20.0-31.0); Chloride 105 mMol/L (98-107); Creatinine (Component) 0.7 mg/dL (0.6-1.3); Estimated Creatinine Clearance 133.9 mL/min (>60); Globulin 1.9 gm/dL (2.3-3.5); Glucose 119 mg/dL (74-106); Magnesium 1.9 mg/dL (1.6-2.6); Osmolality,Calculated 281 (275-295); Phosphorous 1.6 mg/dL (2.4-5.1); Sodium 140 mMol/L (136-145); eGFR > 60 See Note
[2024-11-26] MEDS: HYDROmorphone INJ 2 MG/ML VIAL 0.25 MG IVP ×2 (07:40→20:03)
[2024-11-26] MEDS: PANTOPRAZOLE INJ 40 MG VIAL IVP (08:23)
--- NOTE | 2024-11-26 11:41 | ESPR_ITS ---
<Statement entered by Luiz Zambrano MD - 12/08/24 08:53> I reviewed above note and agree with findings and plans. I have also personally examined the patient with medicine team and went over assessment and plan with medical team including media relations intern and resident physician. Documentation for date of: 11/26/24 Subjective Subjective Interval history: No acute overnight events reported. Pt is seen this morning, he is resting comfortably. Continues to require IV pain meds. However labs have significantly improved. Lactic acid has downtredned to 1.5. Will continue IV fluids and monitor for symptomatic improvement. Will advance diet to clear liquid and if pt is able to tolerate thenwill continue to advance. Exam Vital Signs Temp Pulse Resp BP Pulse Ox O2 Del Method O2 Flow Rate 98.6 F 109 H 20 144/85 H 96 Room Air 3 11/26/24 08:00 11/26/24 08:00 11/26/24 08:00 11/26/24 08:00 11/26/24 08:00 11/26/24 08:00 11/26/24 08:00 Narrative Exam GENERAL: middle aged man, AOx4, appears to be in distress due to pain NEURO: no focal neurological deficits noted HEENT: Atraumatic, Normocephalic. mucous membranes moist. Eyes open, symmetrical, & clear HEART: Normal Heart Sounds LUNGS: Clear to auscultation with no wheezing or crackles. ABDOMEN: soft, non-distended, diffuse abdominal tenderness and guarding - imrpoved SKIN: No Rash or ecchymoses EXTREMITIES: No edema, tenderness, able to move all 4 extremities, pedal pulses palpated Objective Labs 11/26/24 05:50 11/26/24 05:50 Labs: Laboratory Results - last 24 hr 11/25/24 11/25/24 11/25/24 11:32 12:54 15:05 WBC 15.0 H RBC 5.57 Hgb 18.1 H* Hct 50.7 MCV 91 MCH 32.5 MCHC 35.7 RDW Std Deviation 46.7 H Plt Count 141 Neut % (Auto) 87 H Lymph % (Auto) 5 L [place] % (Auto) 7 Eos % (Auto) 0 Baso % (Auto) 0 Neut # (Auto) 13.0 H Lymph # (Auto) 0.8 L [place] # (Auto) 1.1 H Eos # (Auto) 0.0 Baso # (Auto) 0.0 Immature Gran # (Auto) 0.05 H Absolute Nucleated RBC 0.00 Immature Gran % 0 Nucleated RBC % 0 Sodium Potassium Chloride Carbon Dioxide Anion Gap BUN Creatinine Estim Creat Clear Calc eGFR BUN/Creatinine Ratio Glucose Calculated Osmolality Lactic Acid 2.8 H 3.4 H Calcium Corrected Calcium Phosphorus Magnesium Total Bilirubin ALT Alkaline Phosphatase Total Protein Albumin Globulin Albumin/Globulin Ratio 11/25/24 11/25/24 11/26/24 17:35 20:14 00:02 WBC RBC Hgb Hct MCV MCH MCHC RDW Std Deviation Plt Count Neut % (Auto) Lymph % (Auto) Brooks % (Auto) Eos % (Auto) Baso % (Auto) Neut # (Auto) Lymph # (Auto) Brooks # (Auto) Eos # (Auto) Baso # (Auto) Immature Gran # (Auto) Absolute Nucleated RBC Immature Gran % Nucleated RBC % Sodium Potassium Chloride Carbon Dioxide Anion Gap BUN Creatinine Estim Creat Clear Calc eGFR BUN/Creatinine Ratio Glucose Calculated Osmolality Lactic Acid 2.7 H 2.5 H 2.1 H Calcium Corrected Calcium Phosphorus Magnesium Total Bilirubin ALT Alkaline Phosphatase Total Protein Albumin Globulin Albumin/Globulin Ratio 11/26/24 05:50 WBC 12.4 H RBC 4.56 Hgb 14.8 D Hct 41.2 MCV 90 MCH 32.5 MCHC 35.9 RDW Std Deviation 46.8 H Plt Count 106 L D Neut % (Auto) 86 H Lymph % (Auto) 6 L Brooks % (Auto) 6 Eos % (Auto) 1 Baso % (Auto) 0 Neut # (Auto) 10.6 H Lymph # (Auto) 0.7 L [place] # (Auto) 0.7 Eos # (Auto) 0.2 Baso # (Auto) 0.0 Immature Gran # (Auto) 0.11 H Absolute Nucleated RBC 0.00 Immature Gran % 1 H Nucleated RBC % 0 Sodium 140 Potassium 4.0 D Chloride 105 Carbon Dioxide 25.4 Anion Gap 10 BUN 16 Creatinine 0.7 Estim Creat Clear Calc 133.9 eGFR > 60 BUN/Creatinine Ratio 23 H Glucose 119 H Calculated Osmolality 281 Lactic Acid 1.5 Calcium 7.5 L Corrected Calcium 8.2 L Phosphorus 1.6 L Magnesium 1.9 Total Bilirubin 1.2 ALT 17 Alkaline Phosphatase 56 Total Protein 5.0 L Albumin 3.1 L D Globulin 1.9 L Albumin/Globulin Ratio 1.6 Quality Measures Quality Measures VTE prophylaxis Assessment & Plan Assessment Current Active Medications: Generic Name Dose Route Start Last Admin Trade Name Freq PRN Reason Stop Dose Admin Acetaminophen 650 mg 11/24/24 14:41 11/25/24 23:47 Acetaminophen 325 Mg Tablet PO 12/24/24 14:30 650 mg Q6H PRN Administration Fever >100.3 Dextrose 25 ml 11/25/24 02:51 Dextrose 50%-Water Inj 50 Ml Syringe IV 12/25/24 02:50 Q15MIN PRN BG 50-70 responsive npo pt Dextrose 50 ml 11/25/24 02:51 Dextrose 50%-Water Inj 50 Ml Syringe IV 12/25/24 02:50 Q15MIN PRN BG <50 OR BG <70 & pt unresponsive Glucagon 1 mg 11/25/24 02:51 Glucagon Inj 1 Mg Vial IM Q15MIN PRN BG <70, and no IV access Heparin Sodium (Porcine) 5,000 unit 11/24/24 22:00 11/26/24 05:22 Heparin Sod Inj 5000 Unit/Ml Vial SC 12/08/24 21:59 5,000 unit Q8HR LEANNE Administration Hydralazine HCl 10 mg 11/24/24 16:30 11/25/24 23:51 Hydralazine Inj 20 Mg/Ml Vial IVP 12/24/24 16:29 10 mg PRN PRN Administration SBP > 160 Hydromorphone HCl 0.25 mg 11/25/24 18:43 11/26/24 07:40 Hydromorphone Inj 2 Mg/Ml Vial IVP 11/30/24 18:42 0.25 mg Q8HR PRN Administration BREAKTHROUGH PAIN SEVERE 7-10 Sodium Chloride 1,000 mls @ 200 mls/hr 11/25/24 08:34 11/26/24 10:26 Ns IV 12/25/24 08:33 200 mls/hr .Q5H LEANNE Administration Morphine Sulfate 2 mg 11/24/24 17:08 11/26/24 05:21 Morphine Sulf Inj 10 Mg/Ml Vial IVP 11/29/24 17:06 2 mg Q4HR PRN Administration Pain Scale 4-10 (Severe Pantoprazole Sodium 40 mg 11/25/24 09:00 11/26/24 08:23 Pantoprazole Inj 40 Mg Vial IVP 12/25/24 08:59 40 mg QDAY LEANNE Administration Plan Mr. Paredes is a 49-year-old male past medical history significant for heart failure (no previous records available, patient follows with Dr. Hernandez in [place]), hypertension, GERD presented to the ED complaining of severe abdominal pain. Pt is admitted for management of acute pancreatitis. #Acute pancreatitis, unknown etiology #Lactic Acidosis #NAGMA -Unknown etiology at this point, CT of the abdomen is pending therefore unable to determine whether it is gallstone pancreatitis, triglycerides levels are mildly elevated however patient does endorse to eating very greasy food regularly, and likely alcohol related as patient has remained abstinence from alcohol for at least 2 years. - Patient has diffuse abdominal pain initially was radiating to mid back which has since resolved however the diffuse abdominal pain has persist, patient has associated nausea and vomiting. - CT with contrast - Severe acute pancreatitis - Lipase on admission was 2979 -Lipid panel: Triglycerides 262, cholesterol 226, LDL 137, HDL 37 -Lactic acid 2.8 Plan: - advance diet to clear liquid - In the ED patient is given 1.5 L of NS - Continue IV fluids with NS 200 cc/hr - IV pain control as needed ordered - Will continue to monitor patient's symptoms and will advance diet as tolerated - pt will need outpatient work up for autoimmune and GI disorders to further investigate as cause of Pt's pancreatittis. #Polycythemia- resolved -Hgb 19.6 -> 18.1 -hemoconcentration likely secondary to acute pancreatitis -Will continue to monitor daily CBC #Hyperglycemia- resolved Blood glucoses 186 -A1c 5.6 #Primary Hypertension -Pt is currently NPO due to nausea and vomiting, will resume home lisinopril PO when able -Hydralazine as needed ordered for systolic blood pressure > 160 #GERD -Patient takes omeprazole at home -Started the patient on pantoprazole IVP daily -Pt states he has history of Heart failure and see Dr. Hernandez in [place]. Echo during this hospitalization showed EF >60%. 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 However since pt has remained abstinent from alcohol for more than 2 years his cardiac function has improved. Will reevaluated Pt's home medications upon discharge. Health Maintenance Disposition: [facility] for management of acute pancreatitis DVT Prophylaxis: Heparin 5000 units SC Q8 hrs GI Prophylaxis: Pantoprozol-40 IV Qday Diet: NPO Lines: Peripheral lines Code status: Full Assessment and plan discussed with my attending physician Dr. Juan Manuel Penaloza (PGY-1)- Internal medicine resident
[2024-11-26] MEDS: hydrALAZINE INJ 20 MG/ML VIAL 10 MG IVP (20:10)
[2024-11-27] VITALS (7 sets, daily range): BP systolic 142–168; BP diastolic 93–102; PULSE 103–118; RESP 16–28; TEMP 36.4–37.2; O2SAT 93–96
[2024-11-27] MEDS: SODIUM CHLORIDE 0.9% 1000 ML 1,000 ML 200 ML IV ×2 (00:58→05:46)
[2024-11-27] MEDS: MORPHINE SULF INJ 10 MG/ML VIAL 2 MG IVP (03:22)
[2024-11-27] MEDS: hydrALAZINE INJ 20 MG/ML VIAL 10 MG IVP (04:55)
[2024-11-27] MEDS: HEPARIN SOD INJ 5000 UNIT/ML VIAL SC (05:00)
[2024-11-27] MEDS: HYDROmorphone INJ 2 MG/ML VIAL 0.25 MG IVP (05:04)
[2024-11-27 05:58] LABS: Basophils % (Auto) 0 % (0-2.5); Eosinophils % (Auto) 0 % (0-10); Hematocrit 36.7 % (41.0-53.0); Hemoglobin 12.9 g/dL (13.5-16.0); Immature Granulocytes % (Auto) 1 % (0-0); Immature Granulocytes Auto 0.15 Thou/mm3 (0.00-0.00); Lymphocytes # (Auto) 0.9 Thou/mm3 (1.0-4.8); Lymphocytes % (Auto) 7 % (10-50); Mean Corpuscular HGB Conc 35.1 g/dl (31.0-37.0); Mean Corpuscular Hemoglobin 32.3 pg (25.0-35.0); Mean Corpuscular Volume 92 fL (80-100); Monocytes # (Auto) 0.9 Thou/mm3 (0.0-0.8); Monocytes % (Auto) 7 % (0-12); Neutrophils # (Auto) 10.3 Thou/mm3 (1.8-7.7); Neutrophils % (Auto) 84 % (37-80); Nucleated Red Blood Cell % 0 /100 WBC (0); Platelet Count 94 Thou/mm3 (140-440); RDW Standard Deviation 47.1 fL (35.1-43.9); White Blood Count 12.2 Thou/mm3 (3.8-10.6)
[2024-11-27 06:27] LABS: Alanine Aminotransferase 14 U/L (10-49); Albumin, Serum 3.3 gm/dL (3.5-5.0); Albumin/Globulin Ratio 1.4 (1.2-2.2); Alkaline Phosphatase 63 U/L (46-116); Anion Gap 12 (7-16); Aspartate Amino Transferase 30 U/L (0-34); BUN/Creatinine Ratio 12 Ratio (12-20); Bilirubin,Total 1.1 mg/dL (0.3-1.2); Blood Urea Nitrogen 7 mg/dL (9-23); Calcium 7.9 mg/dL (8.3-10.6); Calcium (Corrected) 8.5 mg/dL (8.5-10.1); Carbon Dioxide 23.2 mMol/L (20.0-31.0); Chloride 104 mMol/L (98-107); Creatinine (Component) 0.6 mg/dL (0.6-1.3); Estimated Creatinine Clearance 158.6 mL/min (>60); Globulin 2.4 gm/dL (2.3-3.5); Glucose 104 mg/dL (74-106); Osmolality,Calculated 275 (275-295); Phosphorous 1.3 mg/dL (2.4-5.1); Potassium 3.7 mMol/L (3.4-5.1); Sodium 139 mMol/L (136-145); Total Protein 5.7 gm/dL (5.7-8.2); eGFR > 60 See Note
[2024-11-27] MEDS: PANTOPRAZOLE INJ 40 MG VIAL IVP (08:33)
[2024-11-27] MEDS: NAPH,KPH MBDB 1 PACKET (1.5 GM) 2 PACKET PO (08:34)
--- NOTE | 2024-11-27 09:08 | PC.SS ---
Follow up note: Diet was advanced last night to full diet. Advance diet as tolerated. Pt will return home upon dc.
[2024-11-27] MEDS: ACETAMINOPHEN 325 MG TABLET 650 MG PO (10:09)
[2024-11-27] MEDS: KETOROLAC INJ 30 MG/ML VIAL IVP (11:03)
[2024-11-27 12:39] LABS: Misc Send Out* See Sep Rpt
--- NOTE | 2024-11-27 13:34 | ESDS_ITS ---
Planned Discharge Date 12/01/24 DS: Providers Provider Date of admission: 11/24/24 14:31 Primary care physician: Mansoor Paredes MD Admitting Provider: Andrew Rodriguez MD Attending Provider on Admission: Luiz Zambrano MD Attending Provider on DC: Jaret Penaloza MD Discharging Provider: Jaret Penaloza MD DS: Diagnosis Problem List Completed Was Problem List Reviewed/Reconciled?: Yes Hospital Course Hospital Course Hospital course: Patient left against medical advice on 11/27/24, please refer to the progress note if needed. Dr. Penaloza (PGY-1)- Internal medicine resident Time Spent with Patient Time attestation: Total time spent providing and/or coordinating discharge services: Time spent: Less than 30 minutes Exam Vital Signs Temp Pulse Resp BP Pulse Ox O2 Del Method O2 Flow Rate 97.6 F 103 H 24 H 146/93 H 93 L Nasal Cannula 2 11/27/24 16:00 11/27/24 16:00 11/27/24 16:00 11/27/24 16:00 11/27/24 16:00 11/27/24 16:00 11/27/24 16:00 Discharge Plan Plan Patient Disposition: Left Against Medical Advice Prescriptions/Referrals Prescriptions/Med Rec: No Action lisinopril 20 mg tablet 20 mg PO DAILY Patient Comments: TAKE 1 TABLET BY MOUTH EVERY DAY carvedilol 3.125 mg tablet 3.125 mg PO BID Patient Comments: TAKE 1 TABLET BY MOUTH TWICE A DAY omeprazole 20 mg capsule,delayed release(DR/EC) 20 mg PO DAILY Patient Comments: TAKE 1 CAPSULE BY MOUTH EVERY DAY furosemide 20 mg tablet 20 mg PO DAILY Patient Comments: TAKE 1 TABLET BY MOUTH EVERY DAY Patient/Caregiver Discharge Instructions Print Language: [place] Quality Discharge Quality Measures VTE prophylaxis
--- NOTE | 2024-11-27 14:00 | CHAP ---
Patient visited by he Spiritual Care Volunteer who prayed for them. (Volunteer in hospital from 13:00-c14:30)
--- NOTE | 2024-11-27 16:17 | ESPR_ITS ---
Documentation for date of: 11/27/24 Subjective Subjective Interval history: No acute overnight events reported. Pt is seen and examined at bedside this morning. Pt endorses to significant improvement in his abdominal pain. Will slow down the fluid rate, switch patient to oral pain management and advance his diet and encouraged the patient to increase oral hydration. due to persistent tachycardia, will resume home coreg. Will discontinue home lisinopril and lasix as they care small risk of acute pancreatitis. Pt also order IgG4 determine if patient has autoimmune pancreatitis. Exam Vital Signs Temp Pulse Resp BP Pulse Ox O2 Del Method O2 Flow Rate 97.6 F 103 H 24 H 146/93 H 93 L Nasal Cannula 2 11/27/24 16:00 11/27/24 16:00 11/27/24 16:00 11/27/24 16:00 11/27/24 16:11/27/24 16:11/27/24 16:00 Narrative Exam GENERAL: middle aged man, AOx4, appears to be in distress due to pain NEURO: no focal neurological deficits noted HEENT: Atraumatic, Normocephalic. mucous membranes moist. Eyes open, symmetrical, & clear HEART: Normal Heart Sounds LUNGS: Clear to auscultation with no wheezing or crackles. ABDOMEN: soft, non-distended, no abdominal tenderness and guarding SKIN: No Rash or ecchymoses EXTREMITIES: No edema, tenderness, able to move all 4 extremities, pedal pulses palpated Objective Labs 11/27/24 05:20 11/27/24 05:20 Labs: Laboratory Results - last 24 hr 11/27/24 05:20 WBC 12.2 H RBC 4.00 L Hgb 12.9 L Hct 36.7 L MCV 92 MCH 32.3 MCHC 35.1 RDW Std Deviation 47.1 H Plt Count 94 L Neut % (Auto) 84 H Lymph % (Auto) 7 L [place] % (Auto) 7 Eos % (Auto) 0 Baso % (Auto) 0 Neut # (Auto) 10.3 H Lymph # (Auto) 0.9 L [place] # (Auto) 0.9 H Eos # (Auto) 0.0 Baso # (Auto) 0.0 Immature Gran # (Auto) 0.15 H Absolute Nucleated RBC 0.00 Immature Gran % 1 H Nucleated RBC % 0 Sodium 139 Potassium 3.7 Chloride 104 Carbon Dioxide 23.2 Anion Gap 12 BUN 7 L Creatinine 0.6 Estim Creat Clear Calc 158.6 eGFR > 60 BUN/Creatinine Ratio 12 Glucose 104 Calculated Osmolality 275 Calcium 7.9 L Corrected Calcium 8.5 Phosphorus 1.3 L Magnesium 2.0 Total Bilirubin 1.1 AST 30 ALT 14 Alkaline Phosphatase 63 Total Protein 5.7 Albumin 3.3 L Globulin 2.4 Albumin/Globulin Ratio 1.4 Quality Measures Quality Measures VTE prophylaxis Assessment & Plan Assessment Current Active Medications: Generic Name Dose Route Start Last Admin Trade Name Freq PRN Reason Stop Dose Admin Acetaminophen 650 mg 11/24/24 14:41 11/27/24 10:09 Acetaminophen 325 Mg Tablet PO 12/24/24 14:30 650 mg Q6H PRN Administration Fever >100.3 Hydrocodone Bitart/Acetaminophen 1 tab 11/27/24 10:50 Hydrocodone/Apap 5/325 Tablet PO 12/02/24 10:49 Q6HR PRN PAIN SCALE 4-10(Mod-Sev Carvedilol 6.25 mg 11/27/24 21:00 Carvedilol 3.125 Mg Tablet PO 12/27/24 20:59 BID LEANNE Dextrose 25 ml 11/25/24 02:51 Dextrose 50%-Water Inj 50 Ml Syringe IV 12/25/24 02:50 Q15MIN PRN BG 50-70 responsive npo pt Dextrose 50 ml 11/25/24 02:51 Dextrose 50%-Water Inj 50 Ml Syringe IV 12/25/24 02:50 Q15MIN PRN BG <50 OR BG <70 & pt unresponsive Glucagon 1 mg 11/25/24 02:51 Glucagon Inj 1 Mg Vial IM Q15MIN PRN BG <70, and no IV access Heparin Sodium (Porcine) 5,000 unit 11/24/24 22:00 11/27/24 13:22 Heparin Sod Inj 5000 Unit/Ml Vial SC 12/08/24 21:59 Not Given Q8HR LEANNE Hydralazine HCl 10 mg 11/26/24 13:40 11/27/24 04:55 Hydralazine Inj 20 Mg/Ml Vial IVP 12/24/24 16:29 10 mg Q6H PRN Administration SBP > 160 Ketorolac Tromethamine 30 mg 11/27/24 10:52 11/27/24 11:03 Ketorolac Inj 30 Mg/Ml Vial IVP 12/02/24 10:49 30 mg Q6H PRN Administration BREAKTHROUGH PAIN (SEVERE) Pantoprazole Sodium 40 mg 11/25/24 09:00 11/27/24 08:33 Pantoprazole Inj 40 Mg Vial IVP 12/25/24 08:59 40 mg QDAY LEANNE Administration Plan Mr. Paredes is a 49-year-old male past medical history significant for heart failure (no previous records available, patient follows with Dr. Hernandez in [place]), hypertension, GERD presented to the ED complaining of severe abdominal pain. Pt is admitted for management of acute pancreatitis. #Acute pancreatitis, unknown etiology #Lactic Acidosis - resolves #NAGMA-resolved -Unknown etiology at this point,unlikely alcohol related as patient has remained abstinence from alcohol for at least 2 years, cannot be gallstone pancreatitis as there are no gallstones noted on imaging, triglycerides levels are mildly elevated therefore not enough to cause pancreatittis. Therefore will ordered work up for autoimmune pancreatittis. - Patient has diffuse abdominal pain initially was radiating to mid back which has since resolved however the diffuse abdominal pain has persist, patient has associated nausea and vomiting. - CT with contrast - Severe acute pancreatitis - Lipase on admission was 2979 -Lipid panel: Triglycerides 262, cholesterol 226, LDL 137, HDL 37 -Lactic acid 2.8 Plan: - advance diet to clear liquid - In the ED patient is given 1.5 L of NS - Continue IV fluids with NS 120 cc/hr - IV pain control as needed ordered - Will continue to monitor patient's symptoms and will advance diet as tolerated - pt will need outpatient work up for autoimmune and GI disorders to further investigate as cause of Pt's pancreatittis. -IgG4 ordered for autoimmune pancreatittis #Polycythemia- resolved -Hgb 19.6 -> 18.1 -hemoconcentration likely secondary to acute pancreatitis -Will continue to monitor daily CBC #Hyperglycemia- resolved Blood glucoses 186 -A1c 5.6 #Primary Hypertension -Pt is currently NPO due to nausea and vomiting, will resume home lisinopril PO when able -Hydralazine as needed ordered for systolic blood pressure > 160 #GERD -Patient takes omeprazole at home -Started the patient on pantoprazole IVP daily -Pt states he has history of Heart failure and see Dr. Hernandez in [place]. Echo during this hospitalization showed EF >60%. 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 However since pt has remained abstinent from alcohol for more than 2 years his cardiac function has improved. Will reevaluated Pt's home medications upon discharge. Health Maintenance Disposition: [facility] for management of acute pancreatitis DVT Prophylaxis: Heparin 5000 units SC Q8 hrs GI Prophylaxis: Pantoprozol-40 IV Qday Diet: NPO Lines: Peripheral lines Code status: Full Assessment and plan discussed with my attending physician Dr. Jah Penaloza (PGY-1)- Internal medicine resident Attending Provider Attestation/Addendum Face to face evaluation was performed by me. I have personally seen and examined the patient. I discussed the assessment and plan with the entire medicine team. I reviewed available medical records, imaging studies, laboratory results. I agree with the above subjective data, objective findings, assessment and plan except as corrected by me or noted below Acute pancreatitis Essential hypertension Continue current management. Advance diet as tolerated, encourage p.o. intake, encourage nonsteroidals for pain and inflammation. Obtain IgG4 level?autoimmune pancreatitis?PCP need to follow-up if this lab can be drawn here. Would recommend to adjusting his antihypertensive regimen as ACEI and furosemide can rarely cause pancreatitis as well More than > 30 minutes spent on the encounter Reggie
--- NOTE | 2024-11-27 16:17 | PD.RESEVENT ---
Documentation for date of: 11/27/24 Event Note Event Note: Nurse called that pt wants to go home. I went to bedside to talk to the patient to see why he suddenly wanted to go home. Although his symptoms and labs did improve today, we wanted to monitor patient today as his diet is advanced. By the time I arrived at bedside pt was gone and had left AMA. Dr. Penaloza (PGY-1)- Internal medicine resident
[2024-11-30 22:07] LABS: Immunoglobulin A 165 mg/dL (47-310); Immunoglobulin G 955 mg/dL (600-1640)
[2024-12-01 07:09] LABS: Immunoglobulin M 97 mg/dL (50-300)
[2024-12-03 23:33] LABS: Immunoglobulin A 173 mg/dL (47-310); Immunoglobulin G 1000 mg/dL (600-1640)
[2024-12-04 06:07] LABS: Immunoglobulin M 109 mg/dL (50-300)
== END 2024-11-27 16:00 | disposition left against medical advice (07) | DRG 282 ==
LOC: SERX 13:14 → SERHOLD 14:45 → S3NX 16:37
PROVIDERS: Family Medicine; Internal Medicine; Student in an Organized Health Care Education/Training Program; Admitting Provider Student in an Organized Health Care Education/Training Program; PCP Family Medicine; Visit Provider Internal Medicine
DX: K85.00 Idiopathic acute pancreatitis without necrosis or infection (principal); I50.9 Heart failure, unspecified; I11.0 Hypertensive heart disease with heart failure; K21.9 Gastro-esophageal reflux disease without esophagitis; E87.20 Acidosis, unspecified; R73.03 Prediabetes; R73.9 Hyperglycemia, unspecified; Z53.29 Procedure and treatment not carried out because of patient's decision for other reasons; D75.1 Secondary polycythemia; D89.89 Other specified disorders involving the immune mechanism, not elsewhere classified; K86.1 Other chronic pancreatitis
CPT/HCPCS: 36415; 71045; 74160; 80053; 80061; 82784; 83036; 83605; 83690; 83735; 83880; 84100; 84484; 85025; 85379; 85610; 87040; 87811; 93005; 93225; 93306; 94664; 96361; 96374; 96375; 96376; 99285; A4649; J0360; J0613; J0696; J1171; J1644; J1815; J1885; J2270; J2405; J2470; J3475; J3490; J7030; J7040; J7050; Q9967; A9270; J1920